=== PATIENT | female | born 1970 | race American Indian/Alaskan Native ===

== ENCOUNTER 2017-07-24 10:41 | Emergency (ER) | payer OTHER, BC ==
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
[2017-07-24] MEDS ORDERED: NORCO 5/325 PO ONE (11:59)
[2017-07-24] MEDS ORDERED: FLEXERIL PO ONE (11:59)
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
[2017-07-24 13:53] VITALS: BP 148/84
== END 2017-07-24 13:52 | disposition home or self-care (01) ==
LOC: ED 10:41
DX: G44.319 Acute post-traumatic headache, not intractable (principal); M79.1 Myalgia; I10 Essential (primary) hypertension; E11.9 Type 2 diabetes mellitus without complications; V89.2XXA Person injured in unspecified motor-vehicle accident, traffic, initial encounter; Y93.89 Activity, other specified; Y92.89 Other specified places as the place of occurrence of the external cause; Y99.8 Other external cause status
CPT/HCPCS: 36415; 70450; 84703; 99284

== ENCOUNTER 2018-01-13 20:32 | Emergency (ER) | payer BC ==
[2018-01-13 21:07] VITALS: BP 134/62
--- NOTE | 2018-01-14 00:12 | XRay Report ---
FINAL REPORT PROCEDURE: XR HIP 2-3V RT TECHNIQUE: RIGHT hip radiographs, AP and lateral views. HISTORY: right hip pain COMPARISON: No prior studies are available for comparison. FINDINGS: Fracture (s) and/or Dislocation(s): None . Joint space(s): Normal . Soft tissues: Normal . Bone mineralization: Normal . Foreign bodies: None . IMPRESSION: Normal Examination.
== END 2018-01-14 | disposition left against medical advice (07) ==
LOC: ED 20:32
DX: M25.551 Pain in right hip (principal); Z53.21 Procedure and treatment not carried out due to patient leaving prior to being seen by health care provider

== ENCOUNTER 2019-05-26 20:10 | Emergency (ER) | payer BC, OTHER ==
[2019-05-26 22:15] VITALS: BP 119/62
--- NOTE | 2019-05-26 23:18 | XRay Report ---
LEFT KNEE 3 VIEWS INDICATION / CLINICAL INFORMATION: Left knee pain COMPARISON: None available. FINDINGS: BONES / JOINT(S): There is a small suprapatellar joint effusion. There are mild tricompartmental dege nerative changes. I see no evidence of fracture, dislocation or destructive lesion. SOFT TISSUES: No significant abnormality. ADDITIONAL FINDINGS: None. IMPRESSION: 1. Small suprapatellar joint effusion. No acute osseous abnormality. 2. Mild osteoarthritis. Signer Name: Sergey Suazo MD Signed: 05/26/2019 11:13 PM Workstation Name: [id number]
--- NOTE | 2019-05-26 23:29 | Emergency Department Report ---
ED Extremity Problem HPI - General Chief complaint: Extremity Injury, Lower Stated complaint: LEFT KNEE PAIN Source: patient Mode of arrival: Ambulatory Limitations: No Limitations - History of Present Illness Initial comments: Patient is a 49-year-old female who is complaining of some left knee pain. Patient states for the last 4-5 days she's had pain and left knee with walking. States his achiness and some mild swelling. Patient states that she was walking out of her home and had to go down one step and she states she stepped wrong while walking down the steps and she felt her left knee buckled. Patient fell to the ground. Patient was worried that she may have broken something in her knee. Patient is having intense 8 out of 10 pain in the posterior left knee. Patient states she is unable to bear weight. Quality: aching Consistency: constant Improves with: nothing Worsens with: weight bearing, walking, palpation - Related Data Previous Rx's Medication Instructions Recorded Last Taken Type Cyclobenzaprine [Flexeril] 10 mg PO TID PRN #12 tablet 07/24/17 Unknown Rx traMADoL [Ultram] 50 mg PO Q6HR PRN #12 tablet 07/24/17 Unknown Rx Ibuprofen [Motrin 800 MG tab] 800 mg PO Q8HR PRN #14 tablet 05/26/19 Unknown Rx traMADoL [Ultram] 50 mg PO Q6HR PRN #12 tablet 05/26/19 Unknown Rx Allergies Allergy/AdvReac Type Severity Reaction Status Date / Time Bleach (Sodium Hypochlorite) Allergy Unknown Verified 07/24/17 10:51 ED Review of Systems ROS: Stated complaint: LEFT KNEE PAIN Other details as noted in HPI Comment: All other systems reviewed and negative ED Past Medical Hx - Past Medical History Previous Medical History?: Yes Hx Hypertension: Yes Hx Diabetes: Yes - Surgical History Past Surgical History?: No - Social History Smoking Status: Never Smoker Substance Use Type: None - Medications Home Medications: Home Medications Medication Instructions Recorded Confirmed Last Taken Type Cyclobenzaprine [Flexeril] 10 mg PO TID PRN #12 tablet 07/24/17 Unknown Rx traMADoL [Ultram] 50 mg PO Q6HR PRN #12 tablet 07/24/17 Unknown Rx Ibuprofen [Motrin 800 MG tab] 800 mg PO Q8HR PRN #14 tablet 05/26/19 Unknown Rx traMADoL [Ultram] 50 mg PO Q6HR PRN #12 tablet 05/26/19 Unknown Rx ED Physical Exam - General Limitations: No Limitations General appearance: alert, in no apparent distress - Head Head exam: Present: atraumatic, normocephalic - Eye Eye exam: Present: normal appearance - ENT ENT exam: Present: mucous membranes moist - Neck Neck exam: Present: normal inspection - Respiratory Respiratory exam: Absent: respiratory distress - Cardiovascular Cardiovascular Exam: Present: regular rate, normal rhythm - GI/Abdominal GI/Abdominal exam: Present: soft, normal bowel sounds - Expanded Lower Extremity Exam Left Hip exam: Present: normal inspection Upper Leg exam: Present: normal inspection Knee exam: Present: tenderness (posterior L knee), swelling, effusion. Absent: full ROM, abrasion, laceration, ecchymosis, deformity, dislocation Lower Leg exam: Present: normal inspection, full ROM Ankle exam: Present: normal inspection, full ROM Foot/Toe exam: Present: normal inspection, full ROM - Back Exam Back exam: Present: normal inspection - Neurological Exam Neurological exam: Present: alert, oriented X3 - Psychiatric Psychiatric exam: Present: normal affect, normal mood - Skin Skin exam: Present: warm, dry, intact, normal color. Absent: rash ED Course Vital Signs 05/26/19 21:51 Temperature 98.3 F Pulse Rate 62 Respiratory 18 Rate Blood Pressure 119/62 O2 Sat by Pulse 98 Oximetry ED Medical Decision Making - Radiology Data Ordering Physician: EILEEN QIU MD Date of Service: 05/26/19 Procedure(s): XR knee 3V LT Accession Number(s): [id number] cc: EILEEN QIU MD Fluoro Time In Minutes: LEFT KNEE 3 VIEWS INDICATION / CLINICAL INFORMATION: Left knee pain COMPARISON: None available. FINDINGS: BONES / JOINT(S): There is a small suprapatellar joint effusion. There are mild tricompartmental degenerative changes. I see no evidence of fracture, dislocation or destructive lesion. SOFT TISSUES: No significant abnormality. ADDITIONAL FINDINGS: None. IMPRESSION: 1. Small suprapatellar joint effusion. No acute osseous abnormality. 2. Mild osteoarthritis. Signer Name: Sergey Suazo MD Signed: 05/26/2019 11:13 PM Workstation Name: [id number] - Medical Decision Making Patient's pain likely secondary to acute exacerbation of osteoarthritis. Patient states her leg buckled and she has some worsening pain is no longer to bear weight. Patient likely has injured one of the ligaments of the knee. Patient will be placed in a knee immobilizer. Patient to follow-up with Dr. Worthington orthopedic surgeon to have further evaluation of internal derangement of the left knee. Critical care attestation.: If time is entered above; I have spent that time in minutes in the direct care of this critically ill patient, excluding procedure time. ED Disposition Clinical Impression: Knee arthropathy Internal derangement of knee Qualifiers: Laterality: left Qualified Code(s): M23.92 - Unspecified internal derangement of left knee Disposition: DC-01 TO HOME OR SELFCARE Is pt being admited?: No Does the pt Need Aspirin: No Condition: Stable Instructions: Knee Effusion (ED), Knee Immobilizer (ED), Osteoarthritis (ED) Referrals: SERGEY WORTHINGTON MD [Staff Physician] - 3-5 Days Time of Disposition: 23:31
[2019-05-27] MEDS ORDERED: IBUPROFEN 800 MG TAB PO ONE (00:12)
[2019-05-27] MEDS ORDERED: traMADol 50 MG TAB PO ONE (00:12)
== END 2019-05-27 00:30 | disposition home or self-care (01) ==
LOC: ED 20:10
DX: M23.92 Unspecified internal derangement of left knee (principal); M13.862 Other specified arthritis, left knee; I10 Essential (primary) hypertension; E11.9 Type 2 diabetes mellitus without complications; Z91.09 Other allergy status, other than to drugs and biological substances

== ENCOUNTER 2020-03-26 17:23 | Emergency (ER) | payer OTHER ==
[2020-03-26 21:58] VITALS: BP 123/59
[2020-03-26] MEDS ORDERED: IBUPROFEN 600 MG TAB PO ONE (23:53)
--- NOTE | 2020-03-26 23:57 | Emergency Department Report ---
ED General Adult HPI - General Chief complaint: Fall Stated complaint: FALL ON PLANE PUI?: No Time Seen by Provider: 03/26/20 23:53 Source: patient Mode of arrival: Ambulatory Limitations: No Limitations - History of Present Illness Initial comments: The patient was evaluated in the emergency department for symptoms described in the history of present illness. He/she was evaluated in the context of the global COVID-19 pandemic, which necessitated consideration that the patient might be at risk for infection with the virus that causes COVID-19. Institutional protocols and algorithms that pertain to the evaluation of patients at risk for COVID-19 are in a state of rapid change based on information released by regulatory bodies including the CDC and federal and state organizations. These policies and algorithms were followed during the patient's care in the emergency department. Please note that these policies, procedures and recommendations changed on a rapid basis. 50-year-old -[place] female comes in complaining of left knee pain and headache. Patient states that she had a fall occurred on 03/20/2020. Patient states she was attempting to sit in her chair on the airplane and she landed on her buttocks and her head. Patient reports she is having worsening knee pain and a mild headache. Patient also states that she started having some epigastric pain yesterday. Patient states she is only been taken Tylenol. Her last dose was 4 PM today. She denies any shortness of breath no chest pain just epigastric and left side chest discomfort. Patient has a past medical history of diabetes and hypertension. Onset/Timin -: days(s) Location: left, lower extremity Severity scale (0 -10): 8 Quality: aching, sharp Consistency: intermittent Improves with: none Worsens with: none Associated Symptoms: denies: confusion, diaphoresis, fever/chills, loss of appetite, malaise, nausea/vomiting, shortness of breath Treatments Prior to Arrival: other (Acetaminophen) - Related Data Previous Rx's Medication Instructions Recorded Last Taken Type Cyclobenzaprine [Flexeril] 10 mg PO TID PRN #12 tablet 07/24/17 Unknown Rx traMADoL [Ultram] 50 mg PO Q6HR PRN #12 tablet 07/24/17 Unknown Rx Ibuprofen [Motrin 800 MG tab] 800 mg PO Q8HR PRN #14 tablet 05/26/19 Unknown Rx traMADoL [Ultram] 50 mg PO Q6HR PRN #12 tablet 05/26/19 Unknown Rx Ibuprofen [Motrin 800 MG tab] 800 mg PO Q8HR PRN #30 tablet 03/27/20 Unknown Rx Allergies Allergy/AdvReac Type Severity Reaction Status Date / Time Bleach (Sodium Hypochlorite) Allergy Unknown Verified 07/24/17 10:51 ED Review of Systems ROS: Stated complaint: FALL ON PLANE Other details as noted in HPI Comment: All other systems reviewed and negative ED Past Medical Hx - Past Medical History Previous Medical History?: Yes Hx Hypertension: Yes Hx Diabetes: Yes - Surgical History Past Surgical History?: No - Social History Smoking Status: Never Smoker Substance Use Type: None - Medications Home Medications: Home Medications Medication Instructions Recorded Confirmed Last Taken Type Cyclobenzaprine [Flexeril] 10 mg PO TID PRN #12 tablet 07/24/17 Unknown Rx traMADoL [Ultram] 50 mg PO Q6HR PRN #12 tablet 07/24/17 Unknown Rx Ibuprofen [Motrin 800 MG tab] 800 mg PO Q8HR PRN #14 tablet 05/26/19 Unknown Rx traMADoL [Ultram] 50 mg PO Q6HR PRN #12 tablet 05/26/19 Unknown Rx Ibuprofen [Motrin 800 MG tab] 800 mg PO Q8HR PRN #30 tablet 03/27/20 Unknown Rx ED Physical Exam - General Limitations: No Limitations General appearance: alert, in no apparent distress - Head Head exam: Present: atraumatic, normocephalic - Eye Eye exam: Present: normal appearance - ENT ENT exam: Present: mucous membranes moist - Neck Neck exam: Present: normal inspection, full ROM - Respiratory Respiratory exam: Present: chest wall tenderness. Absent: accessory muscle use - GI/Abdominal GI/Abdominal exam: Present: soft, normal bowel sounds - Expanded Lower Extremity Exam Left Hip exam: Present: normal inspection, full ROM Upper Leg exam: Present: normal inspection, full ROM Knee exam: Present: full ROM, swelling. Absent: tenderness Lower Leg exam: Present: full ROM. Absent: tenderness, swelling, erythema, palpable cord, Mohinder's sign Ankle exam: Present: normal inspection, full ROM Foot/Toe exam: Present: normal inspection - Back Exam Back exam: Present: normal inspection - Neurological Exam Neurological exam: Present: alert, oriented X3, normal gait - Psychiatric Psychiatric exam: Present: normal affect, normal mood - Skin Skin exam: Present: warm, dry, intact, normal color. Absent: rash ED Course Vital Signs 03/26/20 21:51 Temperature 98.2 F Pulse Rate 65 Respiratory 18 Rate Blood Pressure 123/59 O2 Sat by Pulse 100 Oximetry ED Medical Decision Making - Radiology Data Radiology results: report reviewed [facility] [address] [place] [address] XRay Report Signed Patient: AVEL CHOWDARY MR#: [id number] : 1970 Acct:[id number] Age/Sex: 50 / F ADM Date: 03/26/20 Loc: ED Attending Dr: Ordering Physician: ELAYNE JAUREGUI Date of Service: 03/26/20 Procedure(s): XR knee 1-2V LT Accession Number(s): [id number] cc: ELAYNE JAUREGUI Fluoro Time In Minutes: LEFT KNEE, 2 VIEWS INDICATION / CLINICAL INFORMATION: fall with knee pain. COMPARISON: 05/26/2019 FINDINGS: Mild degenerative changes are present within the knee joint. No fracture or dislocation identified. There is a small suprapatellar joint effusion present. IMPRESSION: 1. Small suprapatellar joint effusion. 2. No fracture or dislocation. Signer Name: Dasia Ahmadi MD Signed: 03/27/2020 12:18 AM Workstation Name: [id number] Transcribed By: JR Dictated By: Dasia Ahmadi MD Electronically Authenticated By: Dasia Ahmadi MD Signed Date/Time: 03/27/2017 DD/ TD/TT: - Medical Decision Making 50-year-old -[place] female comes in complaining of left knee pain and headache. Patient states that she had a fall occurred on 03/20/2020. Patient states she was attempting to sit in her chair on the airplane and she landed on her buttocks and her head. Patient reports she is having worsening knee pain and a mild headache. Patient also states that she started having some epigastric pain yesterday. Patient states she is only been taken Tylenol. Her last dose was 4 PM today. She denies any shortness of breath no chest pain just epigastric and left side chest discomfort. Patient has a past medical history of diabetes and hypertension. X-ray of left knee and ibuprofen 600 mg. Critical care attestation.: If time is entered above; I have spent that time in minutes in the direct care of this critically ill patient, excluding procedure time. ED Disposition Clinical Impression: Effusion, left knee, Fall Disposition: DC- TO HOME OR SELFCARE Is pt being admited?: No Does the pt Need Aspirin: No Condition: Stable Instructions: Knee Effusion, [id number] Additional Instructions: X-ray of knee shows a small suprapatella effusion. I would like for you to wear the knee brace follow-up with orthopedic and take your pain medication. Follow- up with your primary care provider as well. Prescriptions: Ibuprofen [Motrin 800 MG tab] 800 mg PO Q8HR PRN #30 tablet PRN Reason: Pain , Severe (7-10) Referrals: VIKTOR RAZA MD [Primary Care Provider] - 3-5 Days Forms: Work/School Release Form(ED)
--- NOTE | 2020-03-27 00:23 | XRay Report ---
LEFT KNEE, 2 VIEWS INDICATION / CLINICAL INFORMATION: fall with knee pain. COMPARISON: 05/26/2019 FINDINGS: Mild degenerative changes are present within the knee joint. No fracture or dislocation identified. T here is a small suprapatellar joint effusion present. IMPRESSION: 1. Small suprapatellar joint effusion. 2. No fracture or dislocation. Signer Name: Dasia Ahmadi MD Signed: 03/27/2020 12:18 AM Workstation Name: [id number]
== END 2020-03-27 02:20 | disposition home or self-care (01) ==
LOC: ED 17:23
DX: M25.462 Effusion, left knee (principal); I10 Essential (primary) hypertension; E11.9 Type 2 diabetes mellitus without complications; Z79.899 Other long term (current) drug therapy; Z88.8 Allergy status to other drugs, medicaments and biological substances
CPT/HCPCS: 99283